=== PATIENT | male | born 1950 | race Caucasian/White ===

== ENCOUNTER 2016-12-31 11:00 | Day surgery (SDC) | payer MEDICARE, OTHER ==
[~2016-12-31] VITALS: Ht 172.7 cm; Wt 60.0 kg
[~2016-12-31 11:00] MED LIST: 0.9% Sodium Chloride 1,000 ML IV SCH; CITA20TA11 PO; Sodium Chloride LOK Flush 10 mL Syringe IV PRN; fentaNYL-PF 50 mCg/mL 2 mL Inj IVPUSH PRN
[2016-12-31 11:21] VITALS: BP 114/51; PULSE 62; RESP 16; O2SAT 100
[2016-12-31] MEDS ORDERED: TEST200V20 IM (11:21)
[2016-12-31] MEDS ORDERED: CALC600T12 PO (11:21)
[2016-12-31] MEDS ORDERED: CHOL100045 PO (11:21)
[2016-12-31 12:14] VITALS: BP 109/67; PULSE 72; RESP 14; O2SAT 97
[2016-12-31 12:22] VITALS: BP 100/64; PULSE 82; RESP 16; O2SAT 99
[2016-12-31 12:27] VITALS: BP 116/69; PULSE 76; RESP 16; O2SAT 98
--- NOTE | 2016-12-31 15:04 | ENDO ---
[address] [address] ENDOSCOPY PROCEDURE PATIENT: GINGER CACERES : 1950 MR#: [id number] ADMIT: 12/31/2016 JOB ID: [id number] DATE: 12/31/2016 TYPE OF OPERATION: 1. Esophagogastroduodenoscopy with biopsy. 2. Colonoscopy with snare polypectomy. 3. Colonoscopy with biopsy. PREOPERATIVE DIAGNOSIS(ES): 1. Gastroesophageal reflux disease. 2. History of abnormal colon. POSTOPERATIVE DIAGNOSIS(ES): 1. Mild nonerosive gastritis. 2. A 5 mm cecal polyp removed by hot snare polypectomy. 3. A 2 mm sigmoid polyp removed by cold biopsy forceps. 4. Mild diverticulosis of the sigmoid. 5. Very tortuous sigmoid colon. ANESTHESIA: 1. Fentanyl 125 mcg. 2. Versed 6 mg IV administered. COMPLICATIONS: None. BLOOD LOSS: Minimal. DESCRIPTION OF PROCEDURE: After the risks and benefits were explained to the patient, informed consent was obtained. After anesthesia administered, upper endoscope was inserted in the mouth intubating to the esophagus, stomach, and second portion of duodenum. Mucosa carefully examined. After the procedure was done, the scope withdrawn and procedure terminated. Colonoscope was then inserted from rectum to the cecum. Mucosa carefully examined. Prep of the patient was fair. After the procedure was done, the scope was withdrawn and procedure terminated. FINDINGS: Upon inspection of the esophagus, the esophagus is normal without masses, ulcers, lesions. Z-line located 40 cm from incisors. Upon entering the stomach, the stomach was normal without masses, ulcers, lesions except for mild nonerosive gastritis. Retroflexion was normal. Duodenal bulb, first and second portion duodenum normal. Biopsy of the antrum and body of the stomach and distal esophagus. Upon inspection of the anus, no masses, hemorrhoids, ulcers, fissures that were seen. Throughout the entire examination, the 5 mm cecal polyp removed by hot snare polypectomy. There was also a 2 mm sigmoid polyp removed by cold biopsy forceps. There was mild sigmoid diverticulosis. The sigmoid colon was extremely tortuous and was likely secondary to adhesions from prior surgery. Retroflexion was normal. IMPRESSIONS: 1. Mild nonerosive gastritis. 2. Extremely tortuous sigmoid colon due to adhesions from prior surgery. 3. A 5 mm cecal polyp removed by hot snare polypectomy. 4. A 2 mm sigmoid polyp, removed by cold biopsy forceps. 5. Mild sigmoid diverticulosis. RECOMMENDATIONS: 1. Await pathology results. 2. Repeat colonoscopy in five years given history of abnormal polyps. 3. High fiber diet.
--- NOTE | 2017-01-03 14:02 | PATH ---
SURGICAL PATHOLOGY Attending Physician:Lalit Villeda MD CASE STATUS: Signed Out PATIENT NAME: TAMARA CACERES PID: [id number] : 1950 DATE COLLECTED:12/31/2016 20:08 SPECIMEN: 1: Stomach, Antrum, Biopsy 2: Gastric, Biopsy 3: Esophagus, Biopsy 4: Colon, Biopsy 5: Colon, Biopsy CLINICAL HISTORY: 1). GASTRIC ANTRUM BIOPSY 2). GASTRIC BODY BIOPSY 3). DISTAL ESOPHAGUS BIOPSY 4). CECAL POLYP X1 5). SIGMOID POLYP X1 FINAL DIAGNOSIS: 1. Gastric Antrum Biopsy: Mild chronic gastritis involving antral mucosa. Negative for evidence of Helicobacter. Negative for intestinal metaplasia. Negative for dysplasia and malignancy. 2. Gastric Body Biopsy: Mild chronic gastritis involving fundic mucosa. Negative for evidence of Helicobacter. Negative for intestinal metaplasia. Negative for dysplasia and malignancy. 3. Distal Esophagus Biopsy: Fragments of squamous epithelium with no gastric-type epithelium identified. Nonspecific mild reactive changes, but negative for dysplasia and malignancy. Eosinophils are not increased. 4. 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 5. Sigmoid Colon Polyp: Hyperplastic polyp. ICD10 D12.0 GROSS DESCRIPTION: The specimen is received in five formalin filled containers labeled with the patient's name. 1). The specimen is sublabeled "gastric antrum" and consists of 2 tiny portions of tissue which aggregate to 0.3 x 0.2 x 0.2 CM. The specimen is entirely submitted in cassette 1A. 2). The specimen is sublabeled "gastric body" and consists of 2 portions of tissue which aggregate to 0.4 x 0.3 x 0.2 CM. The specimen is entirely submitted in cassette 2A. 3). The specimen is sublabeled "distal esophagus" and consists of 2 portions of tissue which aggregate to 0.5 x 0.3 x 0.2 CM. The specimen is entirely submitted in cassette 3A. 4). The specimen is sublabeled "cecal polyp" and consists of 2 portions of tissue which aggregate to 0.5 x 0.5 x 0.4 CM. The specimen is entirely submitted in cassette 4A. 5). The specimen is sublabeled "sigmoid polyp" and consists of a 0.3 x 0.2 x 0.2 CM portion of tissue which is entirely submitted in cassette 5A. 01/01/2017 [facility] ICD-9 CODES: CPT CODES: 1: 96823 2: 41921 3: 63453 4: 75710 5: 92214 Electronically Signed Out Lev Mckeon MD [facility] [address], [place] [address] Technical component performed at [facility], [facility] [address], [place], [address]
== END 2016-12-31 23:59 | disposition home or self-care (01) ==
LOC: END 11:00 → EDSEX 11:00 → END 23:59
PROVIDERS: ATTEND Internal Medicine Gastroenterology
DX: Z12.11 Encounter for screening for malignant neoplasm of colon (principal); D12.0 Benign neoplasm of cecum; D12.5 Benign neoplasm of sigmoid colon; K57.30 Diverticulosis of large intestine without perforation or abscess without bleeding; K29.50 Unspecified chronic gastritis without bleeding; K21.9 Gastro-esophageal reflux disease without esophagitis; Z86.010 Personal history of colon polyps; Z79.899 Other long term (current) drug therapy
CPT/HCPCS: 43239; 45380; 45385; 99153; G0500; J7030

== ENCOUNTER 2017-01-20 06:59 | Emergency (ER) | payer MEDICARE, OTHER ==
[~2017-01-20] VITALS: Ht 172.7 cm; Wt 61.4 kg
[~2017-01-20 06:59] MED LIST changes: -0.9% Sodium Chloride 1,000 ML IV SCH; +CALC600T12 PO; +CHOL100045 PO; -Sodium Chloride LOK Flush 10 mL Syringe IV PRN; +TEST200V20 IM; -fentaNYL-PF 50 mCg/mL 2 mL Inj IVPUSH PRN
[2017-01-20 07:02] VITALS: BP 121/78; PULSE 100; RESP 24; O2SAT 98
--- NOTE | 2017-01-20 07:42 | ED.REPORT ---
HPI-Psychiatric Illness Date of Service Jan 20, 2017 ED Provider: Krishan Oro MD Pt is a 66 year old male with a hx of anxiety and depression on SSRI and GI issues presenting to the ED complaining of suicidal ideation with a plan for the past few weeks. He reports that he has been unable to "pull himself out" and has multiple plans. Pt reports that he has a therapist in [place] but has not seen him in 3-4 months. Pt has hx of depression and suicidal ideation, but has not been hospitalized for it in the past. He states that "I just have these thoughts, images, and thoughts of relief that would come from killing myself." His most common plan is to hang himself. He was recently having GI issues and was placed on Prilosec for three weeks in November, since then his depression has become much worse and he has suicidal thoughts very frequently. Pt was taking Pepcid AC until 3-4 days ago after a negative colonoscopy and endoscopy. Pt also reports insomnia, decreased appetite, and 5 lb weight loss. Denies swelling in arms or legs. Pt is on citalopram 40mg. Nursing Notes Stated Complaint: DEPRESSION Chief Complaint: Psychiatric Complaint Nursing Notes Reviewed: Yes ([facility], meds not reconciled) Allergies: Coded Allergies: Penicillins (Verified Allergy, Mild, 01/20/17) Scheduled Calcium Carbonate (Calcium) 600 Mg Tablet 500 MG PO DAILY Cholecalciferol (Vitamin D3) (Vitamin D) 1,000 Unit Capsule 2,000 UNIT PO DAILY Citalopram (Citalopram) 20 Mg Tablet 20 MG PO DAILY Testosterone Cypionate (Testosterone Cypionate) 200 Mg/1 Ml Vial 200 MG IM WEEKLY General Time Seen by MD: 07:32 Chief Complaint Depressed, Suicidal ideation Hx Obtained From: Patient Arrived By: Walk-in Onset Occurred: More than a week ago... (4 weeks) Symptom Duration: Since onset Progression Since Onset: Constant, Gradually worsening Severity: Current: No pain currently Severity: Maximum: No pain Recent Healthcare: No recent doctor visit, No recent hospitalization Similar Sx Previous: Yes Risk-Psychiatric Illness Suicide Risk Stratification Suicide Risk Factors - Adult: No: Alcohol use, Prior psych admission, Substance abuse RF Statements: Risk factors reviewed Past Medical History Past Medical History Depression on SSRI (Citalopram), anxiety Past Surgical History Colonoscopy, endoscopy Smoking History Never Smoker Social History Alcohol Use: Denies alcohol use Drug Use: Denies drug use Ambulatory Status Independent Review of Systems Review of Systems Note: Decreased appetite Skin: Denies Swelling Psychiatric: Reports: Anxiety, Depression, Insomnia, Suicidal ideation Complete sys rev & neg: except as marked. Musculoskeletal: Denies: Extremity swelling Endocrine: Reports: Weight loss Physical Exam Initial Vital Signs Vital Signs (First) Date Time Temp Pulse Resp B/P Pulse Ox O2 Delivery O2 Flow Rate FiO2 01/20/17 07:02 36.6 100 24 121/78 98 Room Air Initial VS: Reviewed Head / Eyes: Atraumatic, Normocephalic, PERRL ENT: Mucous membranes moist, Conjunctiva normal, No scleral icterus Neck: Supple, Non-tender, Full range of motion Respiratory: No respiratory distress Abdomen / GI: No distention Extremities: Vascular intact, Neuro intact, No swelling, No tenderness Skin: Warm, Dry, No cyanosis General/Constitutional: Awake, Alert Mild hirsutism Neurologic: Oriented X3, Speech NL, No motor deficits, No sensory deficits, Memory NL Psychiatric: Cognitive function NL, Judgment/insight NL Abnormal Mood/Affect: Positive: Depressed Abnormal Thinking / Perception: Positive: Suicidal, with plan No signs of intoxication withdrawal Interpretation & Diagnostics Lab Results Interpretation Result Diagram: 01/20/17 0825 01/20/17 0825 Test 01/20/17 08:25 White Blood Count 6.6th/mm3 (3.8-10.1) Red Blood Count 4.72mil/mm3 (4.40-5.80) Hemoglobin 14.3g/dL (13.8-17.2) Hematocrit 41.9% (41.0-50.0) Mean Corpuscular Volume 88.8fL (81-100) Mean Corpuscular Hemoglobin 30.3pg (27.0-35.0) Mean Corpuscular Hemoglobin Concent 34.1% (32.0-37.0) Red Cell Distribution Width 13.3% (12.3-15.4) Platelet Count 322bil/L (150-400) Neutrophils (%) (Auto) 73.9% (40-74) Lymphocytes (%) (Auto) 17.3% (14-46) Monocytes (%) (Auto) 7.4% (4-12) Eosinophils (%) (Auto) 0.3% (0-5) Basophils (%) (Auto) 0.3% (0-3) Sodium Level 138mEq/L (134-144) Potassium Level 4.8mEq/L (3.5-5.2) Chloride Level 99mEq/L (97-108) Carbon Dioxide Level 24mmol/L (18-29) Blood Urea Nitrogen 10mg/dL (8-27) Creatinine 0.81mg/dL (0.76-1.27) Estimat Glomerular Filtration Rate 102mL/min (>59) Glucose Level 111mg/dL (60-99) Calcium Level 9.6mg/dL (8.5-10.1) Total Bilirubin 0.6mg/dL (0.0-1.2) Aspartate Amino Transf (AST/SGOT) 12U/L (0-50) Alanine Aminotransferase (ALT/SGPT) 8U/L (0-44) Alkaline Phosphatase 64U/L (25-160) Total Protein 6.4g/dL (6.4-8.4) Albumin 4.1g/dL (3.4-5.0) Thyroid Stimulating Hormone (TSH) 0.506uIU/mL (0.450-4.500) Hold Chau Top Tube Received (Received) Lab Results Interpretation: CBC normal CMP normal EtOH 0 U tox negative TSH normal ECG Interpretation Time: 21:10 Interpreted by: ED physician Normal ECG Interpretation: Normal rate (89), Normal sinus rhythm Re-Eval/Medical Decision Med Decision/Clinical Course This is a 66-year-old male with long history of depression, and recent works has had marked worsening depression with near constant thoughts of suicide and a plan for self pain. I attempted to injure himself, but has become increasingly distraught over near constant thoughts of suicide-he has a counselor in [place] that he works with a saw a few months ago, been trying to set up some follow-up, but the symptoms to be getting so severe as concern for safety and came to the emergency department. Is no history of alcohol or drug abuse. He wondered if the reason for the worsening symptoms is that he was placed on omeprazole and wondered if it interacted and encountered his chronic citalopram which he takes 40 mg daily, but he has discontinued the proton pump inhibitor 4 days ago-his symptoms persist/worsen. Reports insomnia, roughly 5 pound weight loss due to anhedonia and sensory anorexia. Patient is requesting voluntary hospitalization. He has no major medical issues. (Note nurse's indicate there is a question about tender versus transgender, patient did not describe any of this to me) He did undergo recent endoscopy and colonoscopy which was reportedly normal. This point this patient presents a voluntary presentation, as severity of symptoms such that hospitalization appears warranted in my opinion, and I am now awaiting an [facility] evaluation for the possibility of voluntary hospitalization placement. As reports episodes of anxiety, and after tox screen testing is negative he was given a 2 mg lorazepam to help with the sense of anxiety while waiting for social group worker evaluation. Source of Hx: Old records Re-Evaluation/Progress : Time of Eval: 15:00 Patient Status: Condition improved Re-Evaluation/Progress Note: Care transferred to Dr. Tapia Consultation : Consulted With: On-call physician Call Returned at: 22:15 Culinary Art Teacher: Agrees with eval, Agrees with plan, Accepts admit Note: Consult with Dr. Frausto, who agrees to accept the patient at [facility] at 0100. Differential Diagnosis: Positive: Depression, Suicidal, Negative: Alcohol abuse Counseled Regarding: Diagnosis, Lab results, Need for follow-up, When/why to return to ED Discharge & Departure Impression: Primary Impression: Depression Depression Type: unspecified Qualified Code: F32.9 - Major depressive disorder, single episode, unspecified Additional Impression: Suicidal ideation Disposition: ADMITTED TO HOSPITAL Receiving Hospital: To [facility], Dr Frausto accetps. Stable for BLS transfer Discharge Condition All VS Reviewed: Yes Condition: Improved Referrals: OTHER,PHYSICIAN (PCP) Care Transferred to: Care transferred to Dr. Tapia Care Transferred at: 15:00 Morgan Attestation Portions of this note were transcribed by Lisa Quinn. I, Dr. Oro personally performed the history, physical exam and medical decision-making; I reviewed and confirmed the accuracy of the information in the transcribed note. Signed by: Morgan Simpson, 01/20/2017 at 2102. Krishan Oro MD Jan 20, 2017 07:42 LISA QUINN Jan 20, 2017 07:48 Kirsten Hidalgo Jan 20, 2017 21:11 Lev Tapia MD Jan 20, 2017 23:41
[2017-01-20] MEDS ORDERED: LORazepam 2 mg Tablet PO ONE (07:55)
[2017-01-20 08:37] LABS: BASOPHILS % (AUTO) 0.3 % (0-3); EOSINOPHILS % (AUTO) 0.3 % (0-5); MONOCYTES % (AUTO) 7.4 % (4-12); Mean Corpuscular Hemoglobin 30.3 pg (27.0-35.0); Mean Corpuscular Volume 88.8 fL (81-100); NEUTROPHILS % (AUTO) 73.9 % (40-74); Platelet Count 322 bil/L (150-400)
[2017-01-20 16:29] VITALS: BP 113/71; PULSE 103; O2SAT 94
[2017-01-20] MEDS ORDERED: LORazepam 1 mg Tablet PO ONE (21:05)
[2017-01-20 23:36] VITALS: BP 97/63; PULSE 83; RESP 16; O2SAT 96
== END 2017-01-20 23:54 | disposition other institution (70) ==
LOC: SED 06:59
DX: F32.9 Major depressive disorder, single episode, unspecified (principal); R45.851 Suicidal ideations; Z88.0 Allergy status to penicillin